=== PATIENT | female | born 1980 | race Caucasian/White ===

== ENCOUNTER 2018-11-20 23:58 | Emergency (ER) | payer OTHER ==
[~2018-11-20] VITALS: Ht 157.5 cm; Wt 63.5 kg
[~2018-11-20 23:58] MED LIST: NOHOMEMEDICATIONS; PROMETHAZINE HC25 MG RECTAL
[2018-11-21] MEDS ORDERED: NAPROSYN500 MG PO (00:52)
[2018-11-21] MEDS ORDERED: KEFLEX500 M1 PO (00:52)
[2018-11-21 01:08] VITALS: BP 136/70
== END 2018-11-21 01:09 | disposition home or self-care (01) ==
LOC: M.ERS 23:58
DX: I80.8 Phlebitis and thrombophlebitis of other sites (principal); Z88.1 Allergy status to other antibiotic agents; Z88.2 Allergy status to sulfonamides; Z90.710 Acquired absence of both cervix and uterus